=== PATIENT | male | born 1965 | race Caucasian/White ===

== ENCOUNTER 2020-10-28 16:00 | Outpatient (REF) | payer OTHER, SELFPAY ==
--- NOTE | 2020-10-28 16:09 | XR_ITS ---
EXAMINATION: XR HIP, LEFT XR KNEE, RIGHT CLINICAL INFORMATION: Left hip pain. Chronic right knee pain. COMPARISON: None. TECHNIQUE: AP and frog-leg lateral views of the left hip. AP, tunnel, lateral, and sunrise views of the right knee. FINDINGS: Left Hip: No acute fracture or dislocation. No significant joint space narrowing or marginal osteophytes. No osseous erosion. Lobulated ossification adjacent to the greater trochanter measuring up to 1.2 cm, which could indicate chronic tendinopathy. Right Knee: Mild medial compartment joint space narrowing with tiny marginal osteophytes. No osseous erosion. No fracture or dislocation. No abnormal soft tissue calcification. Trace joint effusion. XR/XR hip LT min 2V IMPRESSION: LEFT HIP: No acute osseous abnormality. Ossification adjacent to the greater trochanter, which could indicate chronic tendinopathy. RIGHT KNEE: Minimal medial compartment osteoarthritis. Trace joint effusion.
--- NOTE | 2020-10-28 16:09 | XR_ITS ---
EXAMINATION: XR HIP, LEFT XR KNEE, RIGHT CLINICAL INFORMATION: Left hip pain. Chronic right knee pain. COMPARISON: None. TECHNIQUE: AP and frog-leg lateral views of the left hip. AP, tunnel, lateral, and sunrise views of the right knee. FINDINGS: Left Hip: No acute fracture or dislocation. No significant joint space narrowing or marginal osteophytes. No osseous erosion. Lobulated ossification adjacent to the greater trochanter measuring up to 1.2 cm, which could indicate chronic tendinopathy. Right Knee: Mild medial compartment joint space narrowing with tiny marginal osteophytes. No osseous erosion. No fracture or dislocation. No abnormal soft tissue calcification. Trace joint effusion. XR/XR knee RT 4V IMPRESSION: LEFT HIP: No acute osseous abnormality. Ossification adjacent to the greater trochanter, which could indicate chronic tendinopathy. RIGHT KNEE: Minimal medial compartment osteoarthritis. Trace joint effusion.
== END 2020-10-28 16:01 | disposition home or self-care (01) ==
LOC: HO.XRAY 16:00
PROVIDERS: PCP Internal Medicine; Visit Provider Internal Medicine
DX: M25.561 Pain in right knee (principal); G89.29 Other chronic pain
CPT/HCPCS: 73502; 73564

== ENCOUNTER 2020-10-30 06:54 | Outpatient (REF) | payer OTHER, SELFPAY ==
[2020-10-30 07:44] LABS: MANUAL DIFF FLAG NO
[2020-10-30 07:56] LABS: Basophils Absolute Auto 0.1 X10*3/uL (0.0-0.2); Basophils Percent Auto 1.4 % (0-2); Eosinophils Absolute Auto 0.1 X10*3/uL (0.0-0.4); Eosinophils Percent Auto 2.3 % (0-4); Hematocrit 44.8 % (42-52); Hemoglobin 13.4 g/dl (14.0-18.0); Imm Gran Abs Auto 0.03 X10*3/uL (0.00-0.03); Imm Gran Pct Auto 0.6 % (0.0-0.4); Lymphocytes Absolute Auto 1.8 X10*3/uL (1.2-4.9); Lymphocytes Percent Auto 35.2 % (20-40); Mean Corpuscular HGB Conc 29.9 g/dl (31.0-36.0); Mean Corpuscular Hemoglobin 20.4 pg (27.0-33.0); Mean Corpuscular Volume 68.1 fL (80-98); Mean Platelet Volume 10.8 fL (9.4-12.4); Monocytes Absolute Auto 0.6 X10*3/uL (0.1-1.2); Monocytes Percent Auto 11.5 % (2-11); Neutrophils Absolute Auto 2.5 X10*3/uL (2.0-8.3); Platelet Count 248 X10*3/uL (160-400); Red Blood Count 6.58 X10*6/uL (4.60-5.80); Red Cell Distribution Width 17.6 % (11.0-16.0); White Blood Count 5.1 X10*3/uL (4.8-10.8)
[2020-10-30 08:19] LABS: Alanine Aminotransferase 22 U/L (0-40); Albumin Level 4.6 g/dL (3.5-5.0); Alkaline Phosphatase 61 U/L (39-117); Anion Gap 13 (12-20); Aspartate Amino Transferase 19 U/L (5-37); Bilirubin Total 0.5 mg/dL (0.0-1.0); Blood Urea Nitrogen 17 mg/dL (9-16); Calcium 9.6 mg/dL (8.4-10.2); Carbon Dioxide 29 mmol/L (22-29); Chloride 105 mmol/L (96-108); Cholesterol 176 mg/dL; Estimated Glomerular Filt Rate > 60; Glucose Random 112 mg/dL (60-115); HDL Cholesterol 35 mg/dL; LDL Cholesterol Calculated 114 mg/dl; Magnesium 2.1 mg/dL (1.6-2.6); Sodium 142 mmol/L (135-145); Triglycerides 138 mg/dL; Uric Acid 7.6 mg/dL (3.4-7.0)
[2020-10-30 08:24] LABS: Glucose Urine UA NEG (NEG); Leukocyte Esterase Urine NEG (NEG); Nitrite Urine NEG (NEG); Specific Gravity - Urine 1.025 (1.005-1.025); Urine Blood NEG (NEG); Urine Ketones NEG (NEG); Urine Protein NEG (NEG-TRACE)
[2020-10-30 08:25] LABS: Appearance Urine CLEAR; Color Urine YELLOW
[2020-10-30 08:29] LABS: HIV AB/AG Nonreactive (Nonreactive); HIV Num 1 0.09 S/CO (0.00-0.99)
[2020-10-30 08:41] LABS: Prostate Specific Antigen 1.16 ng/mL (<0.05-4.0); Thyroid Stimulating Hormone 0.94 uIU/mL (0.32-4.0)
== END 2020-10-30 06:55 | disposition home or self-care (01) ==
LOC: HO.LAB 06:54
PROVIDERS: Visit Provider Internal Medicine
DX: I10 Essential (primary) hypertension (principal); E78.00 Pure hypercholesterolemia, unspecified; Z12.5 Encounter for screening for malignant neoplasm of prostate
CPT/HCPCS: 36415; 80053; 80061; 81003; 83735; 84153; 84443; 84550; 85025; 87389

== ENCOUNTER 2022-10-13 08:20 | Outpatient (REF) | payer OTHER, SELFPAY ==
[2022-10-13 08:47] LABS: Estimated Average Glucose 143 mg/dL; Hemoglobin A1c % 6.6 %
[2022-10-13 09:11] LABS: Alanine Aminotransferase 49 U/L (0-40); Albumin Level 4.2 g/dL (3.5-5.0); Alkaline Phosphatase 71 U/L (39-117); Anion Gap 12 (12-20); Aspartate Amino Transferase 22 U/L (5-37); Bilirubin Total 0.4 mg/dL (0.0-1.0); Blood Urea Nitrogen 20 mg/dL (9-16); Calcium 9.7 mg/dL (8.4-10.2); Carbon Dioxide 29 mmol/L (22-29); Chloride 102 mmol/L (96-108); Cholesterol 281 mg/dL; Estimated Glomerular Filt Rate > 60; Glucose Random 128 mg/dL (60-115); HDL Cholesterol 35 mg/dL; Potassium 4.4 mmol/L (3.3-5.1); Sodium 139 mmol/L (135-145); Total Protein 6.9 g/dL (6.5-8.0); Triglycerides 511 mg/dL
== END 2022-10-13 08:21 | disposition home or self-care (01) ==
LOC: HO.LAB 08:20
PROVIDERS: PCP Internal Medicine; Visit Provider Internal Medicine
DX: I10 Essential (primary) hypertension (principal); R73.01 Impaired fasting glucose; E78.1 Pure hyperglyceridemia
CPT/HCPCS: 36415; 80053; 80061; 83036

== ENCOUNTER 2023-02-03 07:49 | Outpatient (REF) | payer OTHER, SELFPAY ==
[2023-02-03 08:04] LABS: MANUAL DIFF FLAG NO
[2023-02-03 08:47] LABS: Basophils Percent Auto 0.8 % (0-2); Eosinophils Absolute Auto 0.1 X10*3/uL (0.0-0.4); Eosinophils Percent Auto 1.8 % (0-4); Hematocrit 43.4 % (42.0-52.0); Hemoglobin 13.2 g/dl (14.0-18.0); Imm Gran Abs Auto 0.05 X10*3/uL (0.00-0.03); Lymphocytes Absolute Auto 1.6 X10*3/uL (1.2-4.9); Lymphocytes Percent Auto 30.9 % (20-40); Mean Corpuscular HGB Conc 30.4 g/dl (31.0-36.0); Mean Corpuscular Hemoglobin 20.5 pg (27.0-33.0); Mean Corpuscular Volume 67.5 fL (80.0-98.0); Mean Platelet Volume 11.4 fL (9.4-12.4); Monocytes Absolute Auto 0.5 X10*3/uL (0.1-1.2); Monocytes Percent Auto 9.8 % (2-11); Neutrophils Absolute Auto 2.8 x10*3/uL (2.0-8.3); Neutrophils Percent Auto 55.7 % (45-73); Platelet Count 197 X10*3/uL (160-400); Red Blood Count 6.43 X10*6/uL (4.60-5.80); Red Cell Distribution Width 18.1 % (11.0-16.0); White Blood Count 5.1 X10*3/uL (4.8-10.8)
[2023-02-03 09:35] LABS: Alanine Aminotransferase 37 U/L (0-40); Albumin Level 4.3 g/dL (3.5-5.0); Alkaline Phosphatase 61 U/L (39-117); Anion Gap 11 (12-20); Aspartate Amino Transferase 32 U/L (5-37); Bilirubin Total 0.6 mg/dL (0.0-1.0); Blood Urea Nitrogen 19 mg/dL (9-16); Calcium 9.5 mg/dL (8.4-10.2); Carbon Dioxide 30 mmol/L (22-29); Chloride 106 mmol/L (96-108); Cholesterol 240 mg/dL; Estimated Glomerular Filt Rate > 60; Glucose Random 112 mg/dL (60-115); HDL Cholesterol 36 mg/dL; LDL Cholesterol Calculated 162 mg/dl; Potassium 4.7 mmol/L (3.3-5.1); Sodium 142 mmol/L (135-145); Total Protein 6.6 g/dL (6.5-8.0); Triglycerides 211 mg/dL
[2023-02-03 09:42] LABS: TSH reflex Free T4 1.41 uIU/mL (0.32-4.0)
== END 2023-02-03 07:50 | disposition home or self-care (01) ==
LOC: HO.LAB 07:49
PROVIDERS: PCP Internal Medicine; Visit Provider Internal Medicine
DX: I10 Essential (primary) hypertension (principal); E78.2 Mixed hyperlipidemia
CPT/HCPCS: 36415; 80053; 80061; 84443; 85025

== ENCOUNTER 2023-10-04 11:23 | Outpatient (REF) | payer OTHER, SELFPAY ==
[2023-10-04 11:56] LABS: MANUAL DIFF FLAG NO
[2023-10-04 12:15] LABS: Basophils Absolute Auto 0.1 X10*3/uL (0.0-0.2); Basophils Percent Auto 0.9 % (0-2); Eosinophils Absolute Auto 0.1 X10*3/uL (0.0-0.4); Eosinophils Percent Auto 1.4 % (0-4); Hematocrit 45.2 % (42.0-52.0); Hemoglobin 13.8 g/dl (14.0-18.0); Imm Gran Abs Auto 0.06 X10*3/uL (0.00-0.03); Imm Gran Pct Auto 0.9 % (0.0-0.4); Lymphocytes Percent Auto 28.8 % (20-40); Mean Corpuscular HGB Conc 30.5 g/dl (31.0-36.0); Mean Corpuscular Hemoglobin 20.5 pg (27.0-33.0); Mean Corpuscular Volume 67.2 fL (80.0-98.0); Mean Platelet Volume 10.4 fL (9.4-12.4); Monocytes Absolute Auto 0.5 X10*3/uL (0.1-1.2); Monocytes Percent Auto 7.2 % (2-11); Neutrophils Absolute Auto 4.2 x10*3/uL (2.0-8.3); Neutrophils Percent Auto 60.8 % (45-73); Platelet Count 200 X10*3/uL (160-400); Red Blood Count 6.73 X10*6/uL (4.60-5.80); Red Cell Distribution Width 17.8 % (11.0-16.0); White Blood Count 6.9 X10*3/uL (4.8-10.8)
[2023-10-04 12:23] LABS: Estimated Average Glucose 131 mg/dL; Hemoglobin A1C 150.8811 umol/L; Hemoglobin A1c % 6.2 % (<6.0)
[2023-10-04 12:47] LABS: Alanine Aminotransferase 21 U/L (0-40); Albumin Level 4.4 g/dL (3.5-5.0); Alkaline Phosphatase 65 U/L (39-117); Anion Gap 12 (12-20); Aspartate Amino Transferase 20 U/L (5-37); Bilirubin Total 0.4 mg/dL (0.0-1.0); Blood Urea Nitrogen 20 mg/dL (9-16); Calcium 9.9 mg/dL (8.4-10.2); Carbon Dioxide 27 mmol/L (22-29); Chloride 104 mmol/L (96-108); Cholesterol 161 mg/dL (<200); Estimated Glomerular Filt Rate > 60; Glucose Random 105 mg/dL (60-115); HDL Cholesterol 40 mg/dL (>40); LDL Cholesterol Calculated 88 mg/dL (<100); Potassium 3.7 mmol/L (3.3-5.1); Sodium 139 mmol/L (135-145); Total Protein 7.6 g/dL (6.5-8.0); Triglycerides 167 mg/dL (<150)
[2023-10-04 13:00] LABS: Prostate Specific Antigen Scr 1.39 ng/mL (<0.05-4.0)
[2023-10-04 13:04] LABS: Thyroid Stimulating Hormone 0.85 uIU/mL (0.32-4.0)
[2023-10-04 13:59] LABS: Creatinine Urine 67.11 mg/dL; Microalbumin Urine < 5.0 mg/L
== END 2023-10-04 11:24 | disposition home or self-care (01) ==
LOC: HO.LAB 11:23
PROVIDERS: PCP Internal Medicine; Visit Provider Internal Medicine
DX: Z12.5 Encounter for screening for malignant neoplasm of prostate (principal); I10 Essential (primary) hypertension; R73.01 Impaired fasting glucose; K21.9 Gastro-esophageal reflux disease without esophagitis; E78.2 Mixed hyperlipidemia
CPT/HCPCS: 36415; 80053; 80061; 82570; 83036; 84153; 84443; 85025

== ENCOUNTER 2024-03-04 10:02 | Outpatient (AMB) | payer OTHER, SELFPAY ==
--- NOTE | 2024-03-04 11:18 | MHC.OFFWIV ---
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 , with no current chest pain or shortness of breath. Review of Systems Const All systems reviewed & are unremarkable except as noted in HPI and below Physical Exam Vital Signs: Last Vital Signs Temp 97.5 F 03/04/24 11:19 Pulse 58 03/04/24 11:19 BP 142/80 H 03/04/24 11:19 Pulse Ox 97 03/04/24 11:19 Oxygen Delivery Method Room Air 03/04/24 11:19 BMI result Body Mass Index 31.9 Const General: cooperative, healthy appearing, no acute distress, alert, awake, Physically active and well groomed; No anxious, diaphoretic, intoxicated appearing, poor hygiene or tired appearing Nutritional Appearance: average body habitus Orientation/consciousness: oriented to person Limitations: no limitations HEENT Head: Yes normal to inspection, Yes normocephalic and Yes atraumatic Ears: hearing grossly normal bilaterally, external ears normal, TM's normal bilaterally and EAC's normal General nose exam: Normal external nose present, Normal septum present and No nasal discharge present Face and sinus: Yes normal facial exam, Yes sinuses nontender and Yes face symmetric Mouth: Normal oral and palatal mucosa present, lip normal and tongue normal Throat: Yes posterior oropharynx normal, No peritonsillar mass, Yes postnasal drainage, No uvular edema and No cobblestoning Eyes General: appearance normal, both eyes and all related structures Neck Neck: Yes normal visual inspection, Yes no lymphadenopathy, Yes trachea midline, Yes supple and No anterior neck swelling Chest Chest palpation & inspection: normal palpation of entire chest wall Resp Effort & Inspection: normal respiratory effort, able to speak in complete sentences, no audible wheezes, Actively coughing, no grunting, not labored, no nasal flaring, no pursed lip breathing, no respiratory distress, no retractions, no segmental paradox chest wall movement, no stridor, not tachypneic, no tripod positioning, no use of accessory muscles and symmetric chest movement Auscultation: clear to auscultation bilaterally, no crackles, no rales, no rhonchi, no wheezes, lung sounds not diminished and No rub present Cardio Palpation: normal PMI Rate: regular rate Rhythm: regular rhythm Heart sounds: S1 normal heart sound present and S2 normal heart sound present Skin Other: Good color, warm and dry Neuro General: oriented to person Psych Appearance: grossly normal Mental Status: mental status grossly normal Speech and movement: Normal speech and movement present Affect: normal affect Attitude: cooperative Thought process: Normal thought process present Insight: Good insight present (Psych) Judgement: Good judgement present (Psych) Assessment & Plan Assessment & Plan (1) Lower resp. tract infection: Code(s): J22 - Unspecified acute lower respiratory infection Plan Patient is a 58-year-old male who is new to this clinic in comes to the walk-in complaining acute chest congestion with associated cough and mild shortness of breath. He denies underlying immuno compromising conditions or pertinent past medical history. He has a rhonchorous cough and exam is consistent with likely acute bronchitis, but lung sounds are pretty clear so I think it might be tracheobronchitis. Declined chest x-ray today and pending results of flu COVID and RSV, I wrote him for extended course steroid as well as doxycycline to cover lower respiratory infection as he has some some mild shortness of breath. He is low risk, stable on exam with no signs of work of breathing, and is competent for outpatient follow up as needed. He knows to go to the emergency department with worrisome symptoms. Orders: Orders SARS-CoV2/FLU/RSV 03/04/24 R05.9 - Cough, unspecified Medications: New prednisone then take 3 tabs for 3 days, then 2 tabs for 3 days, then 1 tab for 3 days. 40 mg (4 x 10 mg) PO DAILY 30 tabs 0RF 3 days doxycycline hyclate 100 mg PO BID 14 tabs 0RF 7 days Coding Level of Care Code New Pt Level 4 (65637) Diagnoses Lower resp. tract infection J22
[2024-03-04 11:19] VITALS: BP 142/80; PULSE 58; TEMP 36.4; O2SAT 97; BMI 31.9
== END 2024-03-04 12:42 | disposition home or self-care (01) ==
PROVIDERS: PCP Internal Medicine; Visit Provider Physician Assistant Medical
DX: J22 Unspecified acute lower respiratory infection (principal)
CPT/HCPCS: 99204

== ENCOUNTER 2024-03-04 12:41 | Outpatient (REF) | payer OTHER, SELFPAY ==
[2024-03-04 14:57] LABS: Influenza A PCR NEGATIVE (Negative); Influenza B PCR NEGATIVE (Negative); Resp Syncy Virus RNA Qual PCR NEGATIVE (Negative); SARS COV2 PCR INHOUSE NEGATIVE (Negative)
== END 2024-03-04 12:42 | disposition home or self-care (01) ==
LOC: HO.LAB 12:41
PROVIDERS: Visit Provider Physician Assistant Medical
DX: R05.9 Cough, unspecified (principal)
CPT/HCPCS: 0241U

== ENCOUNTER 2024-04-13 07:45 | Outpatient (REF) | payer OTHER, SELFPAY ==
[2024-04-13 08:41] LABS: Estimated Average Glucose 146 mg/dL; Hemoglobin A1c % 6.7 % (<6.0)
[2024-04-13 08:56] LABS: Anion Gap 16 (12-20); Blood Urea Nitrogen 21 mg/dL (9-16); Calcium 9.5 mg/dL (8.4-10.2); Carbon Dioxide 24 mmol/L (22-29); Chloride 104 mmol/L (96-108); Estimated Glomerular Filt Rate > 60; Glucose Random 131 mg/dL (60-115); Potassium 3.8 mmol/L (3.3-5.1); Sodium 140 mmol/L (135-145)
== END 2024-04-13 07:46 | disposition home or self-care (01) ==
LOC: HO.LAB 07:45
PROVIDERS: PCP Internal Medicine; Visit Provider Internal Medicine
DX: I10 Essential (primary) hypertension (principal)
CPT/HCPCS: 36415; 80048; 83036

== ENCOUNTER 2024-10-25 06:21 | Outpatient (REF) | payer BC, SELFPAY ==
[2024-10-25 06:39] LABS: MANUAL DIFF FLAG NO
[2024-10-25 07:19] LABS: Basophils Absolute Auto 0.1 X10*3/uL (0.0-0.2); Basophils Percent Auto 1.2 % (0-2); Eosinophils Absolute Auto 0.1 X10*3/uL (0.0-0.4); Eosinophils Percent Auto 2.5 % (0-4); Hematocrit 42.8 % (42.0-52.0); Hemoglobin 13.2 g/dl (14.0-18.0); Imm Gran Abs Auto 0.07 X10*3/uL (0.00-0.03); Imm Gran Pct Auto 1.3 % (0.0-0.4); Lymphocytes Absolute Auto 1.9 X10*3/uL (1.2-4.9); Lymphocytes Percent Auto 35.6 % (20-40); Mean Corpuscular HGB Conc 30.8 g/dl (31.0-36.0); Mean Corpuscular Hemoglobin 20.8 pg (27.0-33.0); Mean Corpuscular Volume 67.4 fL (80.0-98.0); Mean Platelet Volume 11.2 fL (9.4-12.4); Monocytes Absolute Auto 0.5 X10*3/uL (0.1-1.2); Monocytes Percent Auto 10.2 % (2-11); Neutrophils Absolute Auto 2.6 x10*3/uL (2.0-8.3); Neutrophils Percent Auto 49.2 % (45-73); Platelet Count 265 X10*3/uL (160-400); Red Blood Count 6.35 X10*6/uL (4.60-5.80); Red Cell Distribution Width 18.5 % (11.0-16.0); White Blood Count 5.2 X10*3/uL (4.8-10.8)
[2024-10-25 07:30] LABS: Estimated Average Glucose 154 mg/dL; Hemoglobin A1C 182.5738 umol/L; Total Hemoglobin (HGBA1C) 3461.5844 umol/L
[2024-10-25 07:58] LABS: Alanine Aminotransferase 23 U/L (0-40); Albumin Level 4.4 g/dL (3.5-5.0); Anion Gap 11 (12-20); Aspartate Amino Transferase 32 U/L (5-37); Bilirubin Total 0.4 mg/dL (0.0-1.0); Blood Urea Nitrogen 20 mg/dL (9-16); Carbon Dioxide 29 mmol/L (22-29); Chloride 106 mmol/L (96-108); Cholesterol 241 mg/dL (<200); Estimated Glomerular Filt Rate > 60; Glucose Random 141 mg/dL (60-115); HDL Cholesterol 38 mg/dL (>40); LDL Cholesterol Calculated 153 mg/dL (<100); Potassium 4.3 mmol/L (3.3-5.1); Sodium 142 mmol/L (135-145); Total Protein 7.2 g/dL (6.5-8.0); Triglycerides 251 mg/dL (<150)
[2024-10-25 08:10] LABS: Alkaline Phosphatase 69 U/L (39-117)
[2024-10-25 08:27] LABS: Creatinine Urine 107.15 mg/dL; Microalbum/Creatinine Ratio Ur 5.5 ug/mg cr (<30)
== END 2024-10-25 06:22 | disposition home or self-care (01) ==
LOC: HO.LAB 06:21
PROVIDERS: PCP Internal Medicine; Visit Provider Internal Medicine
DX: I10 Essential (primary) hypertension (principal); R73.01 Impaired fasting glucose; K21.9 Gastro-esophageal reflux disease without esophagitis; E78.1 Pure hyperglyceridemia
CPT/HCPCS: 36415; 80053; 80061; 82043; 82570; 83036; 85025

== ENCOUNTER 2025-03-17 09:14 | Outpatient (REF) | payer BC, SELFPAY ==
[2025-03-17 09:26] LABS: MANUAL DIFF FLAG NO
[2025-03-17 10:01] LABS: Basophils Absolute Auto 0.1 X10*3/uL (0.0-0.2); Basophils Percent Auto 1.1 % (0-2); Eosinophils Absolute Auto 0.1 X10*3/uL (0.0-0.4); Eosinophils Percent Auto 1.7 % (0-4); Hematocrit 42.3 % (42.0-52.0); Hemoglobin 12.9 g/dl (14.0-18.0); Imm Gran Abs Auto 0.06 X10*3/uL (0.00-0.03); Imm Gran Pct Auto 1.1 % (0.0-0.4); Lymphocytes Absolute Auto 1.7 X10*3/uL (1.2-4.9); Lymphocytes Percent Auto 32.9 % (20-40); Mean Corpuscular HGB Conc 30.5 g/dl (31.0-36.0); Mean Corpuscular Hemoglobin 20.7 pg (27.0-33.0); Mean Platelet Volume 10.1 fL (9.4-12.4); Monocytes Absolute Auto 0.5 X10*3/uL (0.1-1.2); Monocytes Percent Auto 8.6 % (2-11); Neutrophils Absolute Auto 2.9 x10*3/uL (2.0-8.3); Neutrophils Percent Auto 54.6 % (45-73); Platelet Count 219 X10*3/uL (160-400); Red Blood Count 6.22 X10*6/uL (4.60-5.80); Red Cell Distribution Width 17.9 % (11.0-16.0); White Blood Count 5.2 X10*3/uL (4.8-10.8)
[2025-03-17 10:31] LABS: Alanine Aminotransferase 27 U/L (0-40); Albumin Level 4.3 g/dL (3.5-5.0); Anion Gap 12 (12-20); Aspartate Amino Transferase 32 U/L (5-37); Bilirubin Total 0.5 mg/dL (0.0-1.0); Blood Urea Nitrogen 19 mg/dL (9-16); Calcium 9.5 mg/dL (8.4-10.2); Carbon Dioxide 29 mmol/L (22-29); Chloride 106 mmol/L (96-108); Cholesterol 154 mg/dL (<200); Estimated Glomerular Filt Rate > 60; Glucose Random 119 mg/dL (60-115); HDL Cholesterol 38 mg/dL (>40); LDL Cholesterol Calculated 85 mg/dL (<100); Potassium 3.8 mmol/L (3.3-5.1); Sodium 143 mmol/L (135-145); Total Protein 6.7 g/dL (6.5-8.0); Triglycerides 157 mg/dL (<150)
[2025-03-17 10:32] LABS: Estimated Average Glucose 163 mg/dL; Hemoglobin A1c % 7.3 % (<6.0)
[2025-03-17 10:36] LABS: Alkaline Phosphatase 75 U/L (39-117)
[2025-03-17 10:48] LABS: Prostate Specific Antigen 2.23 ng/mL (<0.05-4.0)
== END 2025-03-17 09:15 | disposition home or self-care (01) ==
LOC: HO.LAB 09:14
PROVIDERS: PCP Internal Medicine; Visit Provider Internal Medicine
DX: Z12.5 Encounter for screening for malignant neoplasm of prostate (principal); I10 Essential (primary) hypertension; E11.65 Type 2 diabetes mellitus with hyperglycemia
CPT/HCPCS: 36415; 80053; 80061; 83036; 84153; 85025

== ENCOUNTER 2025-07-14 09:17 | Outpatient (REF) | payer BC, SELFPAY ==
--- OUTSIDE RECORDS SUMMARY | 2025-07-14 09:19 | XMS_ITS | Patient Health Record ---
Author Organization [facility] Address [address] [place] [address] Care Team Providers Care Boiler Tube Blower Name Role Phone Tyler Hernandez MD Primary Care Provider Reid Parker Unavailable [phone] Reason For Referral No Information Medications Medication SIG (Take, Route, Frequency, Duration) Notes Start Date End Date Status Gabapentin Active Lisinopril 12.5 1/2 tablet Act sudheer Pantoprazole Sodium 40 MG 1 tablet Orally prn Rare Active LORazepam Rare Active Social History Tobacco Use: Social History Observation Description Date Details (start date - stop date) Never Smoker NA - NA Tobacco Use/Smoking Question Answer Notes Patient is a nonsmoker Alcohol Screen Question Answer Notes Did you have a drink contain ing alcohol in the past year? Yes How often did you have a dri nk containing alcohol in the past year? 2 to 4 times a month (2 points) How many drinks did you have on a typical day when you were drinking in the past year? 1 or 2 drinks (0 point) How often did you have 6 or more drinks on one occasion in the past year? Never (0 point) Points 2 Interpretation Negative Section Notes: Nonsmoker; no sig alcohol Problems Problem Type SNOMED Code ICD Code Onset Dates Problem Status W/U Status Risk Notes Problem [id number] Encounter for screening for malignant neoplasm of colon (Z12.11) Active confirmed Problem [id number] Preprocedural examination (Z01.818) Active confirmed Plan Of Treatment Future Test Test Name Order Date COLONOSCOPY 04/06/2018 Insurance Providers Payer Name Payer Address Payer Phone Subscriber Number Group Number Insured Name Patient Relationship to Insured Coverage Start Date Coverage End Date [facility] [address] [facility] [place] [phone] [id number] MIREYA MADSEN Self - patient is the insured Medical (General) History Medical History History ICD Code Denies CT,DM,CVA,Lung disease,renal dise ase Hypertension Takes Gabapentin for sleep Anxiety--takes a rare Lorazepam GERD--takes an occasional Pantoprazole
--- OUTSIDE RECORDS SUMMARY | 2025-07-14 09:19 | XMS_ITS | Clinical Summary ---
Author Organization [facility] Address [address] [place] [address] Phone Care Team Providers Care Cd Technician Name Role Phone Tyler Hernandez MD Primary Care Provider [phone] Tyler Hernandez MD Unavailable [phone] Allergies No known active allergies Medications b complex vitamins capsule Take 1 capsule by mouth daily. Active atorvastatin (LIPITOR) 20 MG tabletIndication s:Essential hypertension Take 1 tablet (20 mg total) by mouth daily. 90 tablet 3 5 Active escitalopram oxalate (LEXAPRO) 10 MG tabletIndication s:Anxiety TAKE 1 TABLET(10 MG) BY MOUTH DAILY 90 tablet 3 5 Active lisinopril-hydro CHLOROthiazide (PRINZIDE,ZESTOR ETIC) 20-25 mg per tabletIndication s:Essential hypertension TAKE 1 TABLET BY MOUTH DAILY 90 tablet 3 5 Active omeprazole (PRILOSEC) 20 MG capsule Take 1 capsule (20 mg total) by mouth daily. 60 capsule 5 5 Active Additional Information Patient taking differently:20 mg OralEvery other day, Reported on 04/18/2025 metFORMIN (GLUCOPHAGE-XR) 500 MG 24 hr tabletIndication s:Type 2 diabetes mellitus with hyperglycemia, without long-term current use of insulin Take 2 tablets (1,000 mg total) by mouth daily with dinner. 180 tablet 3 5 Active Active Problems Problem Noted Date Diagnosed Date Primary insomnia 08/19/2021 Assessment & Plan (09/03/2021 6:45 PM EST): Short course of Ambien to reset sleep patterns. Ambien increased to 10 mg for better efficacy. We will follow up with the patient in September regarding sleep management. Assessment & Plan (08/19/2021 5:33 PM EDT): See anxiety diagnosis for impression and plan. Anxiety 10/14/2017 Assessment & Plan (09/03/2021 6:45 PM EST): The patient was requesting help with his anxiety and so we felt we would start him on a course of low-dose Lexapro 5 mg, consider ramp up to 10 mg if tolerated. We will follow up with him in about 3 weeks to see if that is successful. [place] paperwork filled [place] to reflect periods of anxiety where he should take off from work for a day or so. 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 We agree that he should take a 2-week hiatus to sort out how he can help his son, his mother and himself to consider a different avenue of work the as a principal account administrator or teacher or to continue at his current location. We will fill out the [place] paperwork with him to both justify this 2-week hiatus from work and any potential time off needed in the future. In the meantime let us take him off of the lorazepam and gabapentin and in its stead use Ambien for at least 2 weeks starting at 5 mg nightly but ramping up to 10 mg if the 5 mg is not efficacious. If the patient cannot stay asleep on the immediate form then we can put in for a PA for the extended release form. That too can be addressed on the next follow-up visit which can be virtual, telephonic or in person. So the next time I speak with him we will fill out the [facility] paperwork according to what his needs are including this time off that we will write him a letter for. A total of 35 minutes for this visit to get to know the patient, address his concerns of anxiety and formulate the plan. Dyslipidemia 10/14/2017 Essential hypertension 10/14/2017 Gastroesophageal reflux disease 10/14/2017 Hypertension 10/14/2017 Hyperlipidemia 10/14/2017 Encounters Date Type Department Care Team Description 04/18/2025 4:00 PM EDT Office Visit [facility] Internal Medicine [address] [place] [address] Tyler Hernandez MD Type 2 diabetes mellitus with hyperglycemia, without long-term current use of insulin (Primary Dx); Essential hypertension 04/16/2025 Documentation [facility] Internal Medicine [address] [place] [address] Tyler Hernandez MD from Last 3 Months Immunizations Immunization Administration Dates Next Due COVID-19 (Pre-08/09) Pfizer Vaccine, mRNA, PF ,12/28/2020 INFLUENZA, SPLIT VIRUS, TRIVALENT W/ PRESERVATIV E IM 08/15/2014 Influenza Quadrivalent MDCK Preservative Free IM 08/23/2023,08/14/2016 Influenza Quadrivalent Preservative Free IM 09/18,09/18/2021 Influenza Recombinant Honorio valent Preservative Free IM 07/24/2020 Pneumococcal conjugate PCV20 10/26/2024 Td (adult) 5 Lf Tetanus Toxoid, PF, Adsorbed 11/2023,06/18/2006 Tdap 05/24/2012 Zoster recombinant 04/13/2024,08/23/2023 Family History Medical History Relation Comments Diabetes Father Hypertension Father Thalassemia Father Coronary artery disease Mother Dementia Mother Frontotemporal dementia Mother Relation Status Comments Father Alive Mother Alive Social History Tobacco Use Types Packs/Day Years Used Date Smoking Tobacco: Never Smokeless Tobacco: Never Tobacco Cessation:Counseling Given: Not Answered Alcohol Use Standard Drinks/Week Comments Yes 3 (1 standard drink = 0.6 oz pur e alcohol) beer or whiskey Child or Family Care Answer Date Record ed Do you have problems with on e of the following making it difficult for you to work, study, or receive health care? No 10/26/2024 Education Answer Date Recorded Are you interested in help w ith more adult education (for example, completing high school, GED, job training, learning the [place] language, technical skills, or developing parenting skills)? No 10/26/2024 Are you concerned about learning? Not on file 10/26/2024 No 10/26/2024 Yes 10/26/2024 Food Answer Date Recorded Within the past 6 months we worried whether our food would run out before we got money to buy more. Never True 10/26/2024 Within the past 6 months the food we bought just didn't last and we didn't have enough money to get more. Never True Residential Stability Answer Date Recor ded What is your housing situation today? I have nancy sing 10/26/2024 How many times have you move d in the past 12 months? Zero (I did not move) 10/26/2024 Paying for Meds Answer Date Recorded Do you have trouble paying for medicines? No 10/26/2024 Paying Utility Bills Answer Date Record ed Do you have trouble paying your heating or elect ricity bill? No 10/26/2024 Transportation Answer Date Recorded Has the lack of transportati on kept you from medical appointments or from getting medications? No 10/26/2024 Unemployment Answer Date Recorded Are you currently unemployed or working on a part-time or temporary basis, and looking for work? No 10/15/2022 Digital Access Answer Date Recorded No 10/26/2024 Yes 10/26/2024 Do you have reliable internet access at home? Ye s 10/26/2024 Do you have a device (e.g., phone, tablet, computer) with a working camera? Yes 10/26/2024 Intimate Partner Violence Answer Date R ecorded Denied Basic Needs Not on file 10/26/2024 In the past 12 months have y ou been in a relationship with a person who hurts, threatens, or tries to control you? No 10/26/2024 Worried food would run out Not on file 10/26 In the past 12 months have y ou been in a relationship with a person who hurts, threatens, or tries to control you? No 10/26/2024 Sex and Gender Information Value Date Recorded Sex Assigned at Not on file Legal Sex Male 9:38 PM EDT Gender Identity Not on file Sexual Orientation Not on file Last Filed Vital Signs Vital Sign Reading Time Taken Comments Blood Pressure 133/82 04/18/2025 3:49 PM EDT Pulse 68 04/18/2025 3:49 PM EDT Temperature 36.7 C (98.1 F) 04/18/2025 3:49 PM EDT Respiratory Rate 14 04/18/2025 3:49 PM EDT Oxygen Saturation 98% 04/18/2025 3:49 PM EDT Inhaled Oxygen Concentration - - Weight 92.5 kg (204 lb) 04/18/2025 3:49 PM EDT Height 171.4 cm (5' 7.48 ) 04/18/2025 3:49 PM ED T Body Mass Index 31.5 04/18/2025 3:49 PM EDT Plan of Treatment Upcoming Encounters Date Type Department Care Team (Late st Contact Info) Description 07/20/2025 3:30 PM EDT Office Visit [facility] Internal Medicine [address] [place] [address] Tyler Hernandez MD [address] [place] [address] 11/12/2025 4:00 PM EST Office Visit [facility] Internal Medicine [address] [place] [address] Tyler Hernandez MD [address] [place] [address] Health Maintenance Due Date Last Done Comments COLOGUARD 2012 FIT TEST 2012 FOBT 2012 SIGMOIDOSCOPY 2012 VIRTUAL COLONOSCOPY 2012 DIABETIC EYE EXAM 04/18/2025 INFLUENZA VACCINE (#1) 2025 , 10/15/2022, 09/18/2021, Additional history exists COVID-19 VACCINE ( season) 2025 10/16/2021, 01/18/2021, 12/28/2020 HEMOGLOBIN A1C 09/16/2025 03/17/2025, /0 05/2025, 10/04/2023, Additional history exists BLOOD PRESSURE 10/19/2025 04/18/2025 DEPRESSION SCREENING 10/26/2025 10/26/2024 CREATININE LEVEL 03/17/2026 03/17/2025, 05/2025, 04/13/2024, Additional history exists POTASSIUM LEVEL 03/17/2026 03/17/2025, 0 05/2025, 04/13/2024, Additional history exists COLONOSCOPY 05/13/2028 05/13/2018, 05/13/2018 COLORECTAL CANCER SCREENING 05/13/2028 Adult Td,Tdap Booster 10/19/2033 10/19/2023 , 05/24/2012, 06/18/2006 HIV ONE-TIME SCREENING (18-65 YEARS) Completed 10/30/2020 HEPATITIS C SCREENING Completed 06/13/2021 ZOSTER VACCINES Completed 04/13/2024, 08/23/2023 PNEUMOCOCCAL VACCINES (50+ years) Completed 10/26/2024 SMOKING STATUS SCREENING (Once After 26 Yrs) Completed 04/18/2025 HEPATITIS A VACCINES Aged Out No long er eligible based on patient's age to complete this topic HIB VACCINES Aged Out No longer eligi ble based on patient's age to complete this topic MENINGOCOCCAL VACCINES (ACWY) Aged Out No longer eligible based on patient's age to complete this topic MENINGOCOCCAL VACCINES (B) Aged Out N o longer eligible based on patient's age to complete this topic Medical Devices Not on file Procedures Procedure Name Priority Date/Time Associated Diagnosis Comments MICROALBUMIN/CREATIN INE RATIO, RANDOM URINE Routine 04/18/2025 5:05 PM EDT Type 2 diabetes mellitus with hyperglycemia, without long-term current use of insulin OUTSIDE HEMOGLOBIN A1C Routine 03/17/2025 OUTSIDE POTASSIUM LEVEL Routine 03/17/2025 OUTSIDE SERUM CREATININE LEVEL Routine 03/17/2025 HEPATITIS C ANTIBODY, QUALITATIVE Routine 06/13/2021 8:53 AM EDT Need for hepatitis C screening test OUTSIDE HIV Routine 10/30/2020 COLONOSCOPY FOR RESULT ENTRY ONLY Routine 05/13/2018 from Last 3 Months or Most Recently Relevant to Health Maintenance Results * Microalbumin/creatinine ratio, random urine (04/18/2025 5:05 PM EDT) URINE MICROALBUMIN <1.2 0 - 2.3 mg/dL [facility] URINE CREATININE 131 mg/dL [facility] MICROALB/CRE RATIO NOT CALCULATED 0 - 20 mg/g Cre [facility] Comment:due to Microalbumin <1.2 Urine (Urine) 04/18/2025 5:0 5 PM EDT 04/18/2025 8:00 PM EDT Tyler Hernandez MD URINE ORDERABLES Final Result Performing Organization Address [facility]/ZIP Co de Phone Number [address] [address] * Outside Potassium Level (03/17/2025) Potassium level - External 3.8 3.4 - 5.0 mmol/L EXTERNAL NON-INTERFACED REF LAB Historical Provider LAB BLOOD ORDERABLES Maribel l Result Performing Organization Address City/[facility]/ZIP Co de Phone Number EXTERNAL NON-INTERFACED REF LAB * Outside HbA1c (03/17/2025) Hemoglobin A1c - External 7.3 % EXTERNAL NON-INTERFACED REF LAB Historical Provider MD LAB BLOOD ORDERABLES Maribel l Result EXTERNAL NON-INTERFACED REF LAB * Outside Serum Creatinine Level (03/17/2025) Creatinine, serum - External 0.89 0.8 - 1.3 mg/dL EXTERNAL NON-INTERFACED REF LAB Historical Provider LAB BLOOD ORDERABLES Maribel l Result Performing Organization Address City/[facility]/ZIP Co de Phone Number EXTERNAL NON-INTERFACED REF LAB * Hepatitis C antibody, qualitative (06/13/2021 8:53 AM EDT) HCV NON-REACTIV E NON-REACTI VE [facility] Blood 06/13/2021 8:53 AM EDT 06/13/2021 8:58 AM EDT Tyler Hernandez MD LAB BLOOD ORDERABLES Final Re sult [facility] [address] [place] [address] * OUTSIDE HIV TEST (10/30/2020) HIV - External Neg Historical Cresencio GEIGER LAB BLOOD ORDERABLES Maribel l Result * HM COLONOSCOPY FOR RESULT ENTRY ONLY (05/13/2018) Historical Provider HEALTH MAINTENANCE Final Result from Last 3 Months or Most Recently Relevant to Health Maintenance Insurance [facility] [address] [place] [address] [place] [address] [place] [address] [facility] Care Teams Cd Technician Relationship Specialty Start Date End Date Tyler Hernandez MD [address] [place] [address] [email or web address] PCP - General 08/05/17 Tyler Hernandez MD [address] [place] [address] Insurance Assigned Provider 08/26/24 Additional Source Comments The information contained in this document represents components of the legal health record. It is not the complete legal health record.[facility]
[2025-07-14 10:28] LABS: Hemoglobin A1C 190.1232 umol/L; Total Hemoglobin (HGBA1C) 3402.2486 umol/L
[2025-07-14 11:35] LABS: Alanine Aminotransferase 25 U/L (0-40); Albumin Level 4.5 g/dL (3.5-5.0); Alkaline Phosphatase 77 U/L (39-117); Anion Gap 13 (12-20); Aspartate Amino Transferase 29 U/L (5-37); Blood Urea Nitrogen 22 mg/dL (9-16); Calcium 9.6 mg/dL (8.4-10.2); Carbon Dioxide 27 mmol/L (22-29); Chloride 107 mmol/L (96-108); Estimated Glomerular Filt Rate > 60; Potassium 3.8 mmol/L (3.3-5.1); Sodium 143 mmol/L (135-145); Total Protein 7.0 g/dL (6.5-8.0)
[2025-07-14 11:38] LABS: Microalbum/Creatinine Ratio Ur 5.7 ug/mg cr (<30)
== END 2025-07-14 09:18 | disposition home or self-care (01) ==
LOC: HO.LAB 09:17
PROVIDERS: PCP Internal Medicine; Visit Provider Internal Medicine
DX: E11.65 Type 2 diabetes mellitus with hyperglycemia (principal); I10 Essential (primary) hypertension
CPT/HCPCS: 36415; 80053; 82043; 82570; 83036